=== PATIENT | female | born 1995 | race Caucasian/White ===

== ENCOUNTER 2022-07-01 18:46 | Emergency (ER) | payer OTHER, SELFPAY ==
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
[2022-07-01 18:51] VITALS: BP 112/52; PULSE 87; RESP 18; TEMP 36.7; O2SAT 100
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
[2022-07-01] MEDS: IBUPROFEN 400 MG TABLET 800 MG PO (20:57)
[2022-07-01] MEDS: ACETAMINOPHEN 500 MG TABLET 1000 MG PO (20:58)
[2022-07-01] MEDS: methocarbamoL 750 MG TABLET 1500 MG PO (21:24)
[2022-07-01 21:49] VITALS: BP 116/76; PULSE 74; RESP 16; O2SAT 100
== END 2022-07-01 21:51 | disposition home or self-care (01) ==
PROVIDERS: Emergency Provider Emergency Medicine
DX: M25.522 Pain in left elbow (principal); M25.562 Pain in left knee; M25.561 Pain in right knee; V49.40XA Driver injured in collision with unspecified motor vehicles in traffic accident, initial encounter
CPT/HCPCS: 73070; 73562; 81025; 99284; A9270